=== PATIENT | female | born 1990 | race Caucasian/White ===

== ENCOUNTER 2016-09-26 07:54 | Emergency (ER) | payer OTHER ==
[2016-09-26] MEDS ORDERED: ACETAMINOPHEN 500 MG TABLET ONE (08:51)
[2016-09-26] MEDS ORDERED: KETOROLAC TROMETHAMINE 15 MG/ML VIAL ONE (08:51)
[2016-09-26] MEDS ORDERED: OXYCODONE HCL 5 MG TABLET ONE (08:51)
[2016-09-26 08:58] LABS: SPECIFIC GRAVITY 1.025 (1.001-1.030); URINE BILIRUBIN NEGATIVE (NEGATIVE); URINE BLOOD NEGATIVE (NEGATIVE); URINE GLUCOSE (UA) NEGATIVE (NEGATIVE); URINE LEUKOCYTE ESTERASE NEGATIVE (NEGATIVE); URINE NITRITE NEGATIVE (NEGATIVE); URINE PROTEIN NEGATIVE (NEGATIVE); URINE UROBILINOGEN NORMAL (0-1 mg/dl)
[2016-09-26] MEDS ORDERED: LIDOCAINE 5% PATCH ONE (08:59)
[2016-09-26 09:00] LABS: HCG,QUALITATIVE URINE NEGATIVE; URINE APPEARANCE CLEAR; URINE COLOR YELLOW
== END 2016-09-26 09:24 | disposition home or self-care (01) ==
LOC: ED 07:54
DX: M54.5 Low back pain (principal); J45.909 Unspecified asthma, uncomplicated; F17.210 Nicotine dependence, cigarettes, uncomplicated
CPT/HCPCS: 81025; 81003; 99282; 99283; A9270 ×3; J1885

== ENCOUNTER 2016-11-24 14:42 | Emergency (ER) | payer OTHER ==
[2016-11-24] MEDS ORDERED: ACETAMINOPHEN 500 MG TABLET ONE (15:06)
[2016-11-24] MEDS ORDERED: OXYCODONE HCL 5 MG TABLET ONE (15:06)
[2016-11-24] MEDS ORDERED: KETOROLAC TROMETHAMINE 60 MG/2 ML VIAL ONE (15:06)
[2016-11-24] MEDS ORDERED: LIDOCAINE 5% PATCH ONE (15:06)
[2016-11-24] MEDS ORDERED: METHOCARBAMOL 500 MG TABLET PO ONE (15:15)
[2016-11-24] MEDS ORDERED: PREDNISONE 20 MG TABLET ONE (16:24)
== END 2016-11-24 17:26 | disposition home or self-care (01) ==
LOC: ED 14:42
DX: M54.5 Low back pain (principal); J45.909 Unspecified asthma, uncomplicated; F17.210 Nicotine dependence, cigarettes, uncomplicated
CPT/HCPCS: 99284; 96372; 99283; A9270 ×3; J7512; J1885